=== PATIENT | female | born 1985 | race Caucasian/White ===

== ENCOUNTER 2021-07-26 05:34 | Inpatient (IN) | payer OTHER ==
[2021-07-26] VITALS (44 sets, daily range): BP systolic 90–139; BP diastolic 51–91
[~2021-07-26] VITALS: Ht 157.5 cm; Wt 73.0 kg
[2021-07-26] MEDS ORDERED: PRENTAB9 PO (06:05)
[2021-07-26] MEDS ORDERED: PRIL20TA2 PO (06:05)
[2021-07-26] MEDS ORDERED: HOME MED LIST COMPLETE! XX SCH (06:10)
[2021-07-26] MEDS ORDERED: LR 1,000 ML IV SCH (08:15)
[2021-07-26] MEDS ORDERED: METHYLERGONOVINE MALEATE 0.2 MG/ML VIAL (J2210) IM PRN (08:15)
[2021-07-26] MEDS ORDERED: OXYTOCIN INJ 10 UNITS/ML VIAL (J2590) IV PRN (08:15)
[2021-07-26] MEDS ORDERED: OXYTOCIN DRIP 30 UNITS in IV 1 EA IV PRN (08:15)
[2021-07-26] MEDS ORDERED: LACTATED RINGER'S 1000 ML IV ONE (08:15)
--- NOTE | 2021-07-26 08:49 | HPEPDOC ---
Obstetrical History & Physical General Date of Admission Jul 26, 2021 at 08:12 Primary Care Physician: Richi Linn MD History of Present Illness Vital Signs Label Value Date Time Patient Temperature 97.9 degrees F 07/26/21 0714 Temperature Source Temporal 07/26/21 0714 Pulse 82 07/26/21 0714 Respiratory Rate 20 bpm 07/26/21 0714 Blood Pressure Assessment 127/79 (95) 07/26/21 0714 Source Automatic Cuff (NIBP) Bedside Pulse Oximetry 100 % 07/26/2114 Blood Pressure Assessment 127/82 (97) 07/26/21 0555 Source Automatic Cuff (NIBP) Respiratory Rate 18 bpm 07/26/21 0555 Pulse 67 07/26/21 0555 Patient Temperature 97.4 degrees F 07/26/21 0555 Temperature Source Temporal 07/26/21 0555 35 YO LMP 10/22/2020 EDC BY EARLY US 9.1 WEEKS IS 07/29/21 AT 39.2 WEEKS WITH VOMITING Chief Complaint: Contractions, term Information Provided By: Patient Age: 35 : 1 Term: 0 Pre-term: 0 Abortions: 0 Livin Care Care: Good Care Number of Visits: 9 Dating Final EDC: Jul 29, 2021 Final EDC for Daily Update: Jul 29, 2021 Final EDC by: LMP LMP: Oct 12, 2020 1st Trimester Date: Dec 25, 2020 Weeks + Days: 9.1 Estimated Date of Confinement: Jul 29, 2021 EGA at Admission: 39.2 Antepartum Course Diagnos(e)s ACTIVE LABOR AT TERM Height (inches): 63 Pre- weight (lbs.): 133 Admission Weight (lbs.): 161 Change in Weight (lbs.): 28 Past Medical History Past Obstetrical History : Past Obstetrical History: Primgravida Past Medical History Surgical History: Hernia repair (HPV POSITIVE) Family History Significant Family History: Other (STROKE GRAND MERE ) Social History Social history NON SMOKER NO ETOH NO VAPING NO RECREATIONAL DRUGS Marital Status: Family situation: Spouse/partner home Psychosocial History: No pertinent psych hx * Smoker: non-smoker Alcohol: Denies Drugs: denies Abuse Violence Screening Have you been hit/kicked/slapp: No Have you been sexually assault: No Imunizations Tdap status: current Influenza Status: current Allergies Coded Allergies: No Known Allergies (Unverified , 07/26/21) Medications Scheduled Omeprazole Magnesium (Prilosec Otc) 20 Mg Tablet.dr, 20 MG PO DAILY No.137/Iron/Folic Acd ( Vitamin Tablet) 1 Each Tablet, 1 TAB PO DAILY Physical Examination Physical Examination GENERAL: Alert and oriented times three. BREAST: . ABDOMEN: Gravid and non-tender to touch. FETUS: Is vertex (VTX) by sterile vaginal examination (SVE), fetus is vertex (VTX) by Neil. HEART RATE: Regular rate and rhythm. LUNGS: Clear to auscultation (CTA). EXTREMITIES: No edema. No clonus. Deep tendon reflexes (DTRs) + . PELVIC EXAMINATION SOFT ANTERIOR 3 CM BULGING MEMBRANES -3 STATION POP Other physical findings NO RASHES LESIONS PURITIS CHEST CLEAR TO BASRES NO WHEEZES NO RONCHI ABDOMEN SOFT 4 QUADRANT BOWEL SOUNDS NO N/V/D/C/F/ Vital Signs/I&O Vital Signs Date Time Temp Pulse Resp B/P (MAP) Pulse Ox O2 Delivery O2 Flow Rate FiO2 07/26/21 07:14 97.9 82 20 127/79 (95) 100 Room Air Pertinent Laboratoy Data Blood Type: O+ RBC Antibody Screen: Negative HIV: Negative Hepatitis B: Negative Rapid Plasma Reagin: Immune Rubella: Nonreactive Varicella: Nonreactive Chlamydia/Gonorrhea: Negative Group B Streptococcus: Negative Cystic Fibrosis: Negative Anatomy Ultrasound Ultrasound Date: Mar 12, 2021 Placenta Location: Anterior Normal Anatomy: Yes Placenta Previa: No Estimated Weight (grams): 376 Steroid Therapy Steroid Therapy: No Vaginal Examination Dilation: 3 cm Effacement: 60% Station: -3 Cervical Position: Middle Presentation: Cephalic presentation Assessment Heart Rate (FHR): 144 Variability: Moderate Accelerations: Present Decelerations: None Tocometer Contractions: Yes Frequency: every 1-3 min. Duration: less than 60 seconds Strength: palpated as moderate Assessment/Plan Assessment 35 -year-old (G)1 para (P)0 at 39.2 weeks by 9.1-week ultrasound. Presents to Labor and Delivery (L&D) .ACTIVE LABOR TERM Plan Admit and orient. 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 Diet: NPO Group B Streptococcus (GBS) [negative]. Labs and intravenous (IV) per unit protocol. Counseled on Pitocin and induction of labor (IOL). Lactated Ringers (LR): Bolus mL, then at mL/hr. Anticipate [normal spontaneous delivery ()]. C-S as appropriate. Labor and Delivery Counseling DISCUSSED VAGINAL DELIVERY WITH POSSIBLE ASSISTANCE FORCEPS OR VACUUM FOR OR MATERNAL INDICATIONS. POSSIBLE EMERGENCY CS FOR OR MATERNAL INDICATIONS RISKS INCLUDE HEMORRHAGE INFECTION PERFORATION REOPERATION REMOTE BLOOD TRANSFUSION REMOTE HYSTERECTOMY FOR LIFE THREATENING BLEEDING ADMISSION TO NICU POSSIBLE HEMATOMA SUBDURAL OR LACERATIONS EXPRESSED UNDERSTANDING USE OF PITOCIN MAY INCREASE RISK OF NRFHT OR LEAD TO CS. 20 MINUTE DISCUSSION Richi Linn MD Jul 26, 2021 08:38
[2021-07-26 08:53] LABS: HEMATOCRIT 37.7 % (36.0-47.0); HEMOGLOBIN 12.5 g/dl (12.0-15.5); MEAN CORPUSCULAR HGB CONC 33.2 g/dl (32.0-36.5); MEAN CORPUSCULAR VOLUME 93.5 fl (80.0-96.0); PLATELET COUNT, AUTOMATED 152 10^3/uL (150-450); RED BLOOD COUNT 4.03 10^6/uL (4.00-5.40); WHITE BLOOD COUNT 15.8 10^3/uL (4.0-10.0)
[2021-07-26] MEDS ORDERED: ONDANSETRON 4MG/2ML VIAL IV PRN ×2 (09:05→10:40)
[2021-07-26] MEDS ORDERED: FENTANYL 2MCG/ML ROPIVACAINE 0.2% IN 0.9% NACL 100ML IVBAG As Ordered ONE (09:17)
[2021-07-26] MEDS ORDERED: diphenhydrAMINE 50MG/ML VIAL (J1200) IV PRN (10:40)
[2021-07-26] MEDS ORDERED: FENTANYL/ROPIVACAINE/NACL BAG 100 ML EPIDURAL SCH (10:40)
[2021-07-26] MEDS ORDERED: EPIDURAL COMMENT XX SCH (10:40)
[2021-07-26] MEDS ORDERED: EPIDURAL/PCA KEYS XX PRN (10:40)
[2021-07-26] MEDS ORDERED: REFRIGERATOR IV KEYS XX PRN (10:40)
[2021-07-26] MEDS ORDERED: NALOXONE INJ 0.4MG/1ML VIAL (J2310 PER 1MG) IV PRN (10:40)
[2021-07-26] MEDS ORDERED: OXYTOCIN DRIP 30 UNITS in IV 1 EA IV SCH ×2 (11:20→19:20)
[2021-07-26] MEDS ORDERED: ePHEDrine INJ 50 MG/ML VIAL IV STA (12:02)
[2021-07-26] MEDS ORDERED: ePHEDrine SULFATE 25 MG/5 ML(5MG/ML) SYRINGE As Ordered ONE (12:03)
[2021-07-26] MEDS ORDERED: LR 500 ML IV ONE (12:10)
[2021-07-26] MEDS ORDERED: ePHEDrine SULFATE 25 MG/5 ML(5MG/ML) SYRINGE IV STA (12:12)
[2021-07-26] MEDS: LR 1,000 ML IV SCH ×2 (13:52→17:55)
[2021-07-26] MEDS ORDERED: CALCIUM CARBONATE 500 MG CHEW U/D PO PRN (16:35)
[2021-07-26 19:12] LABS: CORD GAS ABE A -14.9; CORD GAS HCO3 A 17.7 MEQ/L; CORD GAS O2 SAT A 56.3 %; CORD GAS PCO2 A 71.6 mmHg; CORD GAS PH A 7.012 UNITS; CORD GAS PO2 A 35.2 mmHg; CORD GAS SBC A 12.7 MEQ/L; CORD GAS TCO2 A 19.9 MEQ/L
[2021-07-26 19:15] LABS: CORD GAS ABE V -13.8; CORD GAS HCO3 V 16.4 MEQ/L; CORD GAS O2 SAT V 57.4 %; CORD GAS PCO2 V 53.9 mmHg; CORD GAS PH V 7.1 UNITS; CORD GAS PO2 V 31.3 mmHg; CORD GAS SBC V 13.4 MEQ/L
[2021-07-26] MEDS ORDERED: DIBUCAINE 1% OINTMENT 30GM TOP PRN (19:20)
[2021-07-26] MEDS ORDERED: ACETAMINOPHEN 500 MG TAB PO PRN (19:20)
[2021-07-26] MEDS ORDERED: MEASLES,MUMPS,RUBELLA VACCINE INJ (MMR-II) (90707) SC SCH (19:20)
[2021-07-26] MEDS ORDERED: METHYLERGONOVINE MALEATE 0.2 MG TAB PO PRN (19:20)
[2021-07-26] MEDS ORDERED: ANUSOL HC CREAM 30GM TOP PRN (19:20)
[2021-07-26] MEDS ORDERED: MOM 30ML SUSPENSION UDC PO PRN (19:20)
--- NOTE | 2021-07-26 19:34 | DNPDOC ---
[facility] Delivery Note Delivery Note DATE OF DELIVERY: 07/26/2021 PREDELIVERY DIAGNOSIS: 39-2/7 weeks' gestation and labor. POST DELIVERY DIAGNOSIS: Delivered. PROCEDURE: Spontaneous vaginal delivery DRY BOSS: Indira Salgado MD ANESTHESIA: EPIDURAL ESTIMATED BLOOD LOSS: 150 mL. FINDINGS: 8 pound 10 ounce, 3810g male infant, Score 7/9, nuchal cord times 1. Item Value Date Time White Blood Count 15.8 10^3/uL H 07/26/21 0835 Red Blood Count 4.03 10^6/uL 07/26/21 0835 Hemoglobin 12.5 g/dl 07/26/21 0835 Hematocrit 37.7 % 07/26/21 0835 Mean Corpuscular Volume 93.5 fl 07/26/21 0835 Mean Corpuscular Hemoglobin 31.0 pg 07/26/21 0835 Mean Corpuscular Hemoglobin Concent 33.2 g/dl 07/26/21 0835 Red Cell Distribution Width 12.5 % 07/26/21 0835 Platelet Count 152 10^3/uL 07/26/21 0835 Nucleated Red Blood Cells % (auto) 0.0 % 07/26/21 0835 Oxygen Delivery Method Room Air 07/26/21 0714 Cord Arterial Blood pH 7.012 UNITS 07/26/211854 Cord Arterial Blood PCO2 71.6 mmHg 07/26/211854 Cord Arterial Blood PO2 35.2 mmHg 07/26/211854 Cord Arterial Blood HCO3 17.7 MEQ/L 07/26/211854 Cord Arterial Blood Total CO2 19.9 MEQ/L 07/26/211854 Cord Arterial Blood Base Excess -14.9 07/26/211854 Cord Arterial Base Excess (Standard 12.7 MEQ/L 07/26/211854 Cord Arterial Bld Oxygen Saturation 56.3 % 07/26/211854 Cord Venous Blood pH 7.100 UNITS 07/26/211854 Cord Venous Blood PCO2 53.9 mmHg 07/26/211854 Cord Venous Blood PO2 31.3 mmHg 07/26/211854 Cord Venous Blood HCO3 16.4 MEQ/L 07/26/211854 Cord Venous Blood Total CO2 18.0 MEQ/L 07/26/211854 Cord Venous Base Excess (Actual) -13.8 07/26/211854 Cord Venous Base Excess (Standard) 13.4 MEQ/L 07/26/211854 Cord Venous Blood Oxygen Saturation 57.4 % 07/26/211854 Vital Signs Label Value Date Time Patient Temperature 97.9 degrees F 07/26/21713 Temperature Source Temporal 07/26/21713 Pulse 82 07/26/21713 Blood Pressure Assessment 127/79 (95) 07/26/21713 Source Automatic Cuff (NIBP) Respiratory Rate 20 bpm 07/26/21713 Bedside Pulse Oximetry 100 % 07/26/21713 Patient Temperature 97.4 degrees F 07/26/21554 Temperature Source Temporal 07/26/21554 Pulse 67 07/26/21554 Respiratory Rate 18 bpm 07/26/21554 Blood Pressure Assessment 127/82 (97) 07/26/21554 Source Automatic Cuff (NIBP) DELIVERY SUMMARY: Patient is a 35 year-old 1 now para 1001 who was admitted to labor and delivery for augmentation. She progressed to C/C/+2 and with good maternal effort delivered a viable . The infants head delivered OA and the head was allowed to spontaneously restitute WARNER. loose nuchal cord noted and delivered through. anterior shoulders delivered with gentle downward traction followed by posterior shoulder and corpus without difficulty. Normal 3-vessel cord clamped x 2 and cut after 1 minute of delayed cord clamping. Spontaneous cry noted. placed on maternal abdomen for [id number] Cord blood obtained. Placenta delivered spontaneously and inspection of the placenta demonstrated that it was intact. The cord insertion appeared normal. The uterus was cleared of all clots and debris. Fundal massage until firm. 30 units of Pitocin administered per protocol and the patient required no additional uterotonics. Inspection of cervix, perineum, and vaginal wall revealed 2nd degree laceration that was repaired with a 2-0 vicryl in the usual fashion. a uretral laceration was also noted and repaired with 2 interupted stiches with 3-0 vicryl. sandoval cathater was placed to stay in overnight for expeced edema that will insure . Repeat uterine examination noted uterine tone to be adequate and firm. Mom and infant stayed in L&D in hemodynamic stable condition upon my departure. Sponge, lap and needle count correct x 2. ROSEMARIE LOPEZ MD Jul 26, 2021 19:34
[2021-07-26] MEDS: DOCUSATE SODIUM 100MG CAPSULE PO SCH (21:00)
[2021-07-27 06:00] VITALS: BP 116/62
[2021-07-27] MEDS: IBUPROFEN 800 MG TAB PO PRN ×2 (06:38→14:54)
--- NOTE | 2021-07-27 08:22 | IPNPDOC ---
Progress Note Date of Service: Jul 27, 2021 Day#: 1 Progress Note SUBJECT: Jannet is a 35-year-old [id number] PPD0 S/P complicated by uretral laceration requiring postparum sandoval overnight. she delivered an 8 pound 10 ounce, 3810g male , Score 7/9, nuchal cord times 1. She has been ambulating, and tolerating regular diet. Breast feeding without issue. Reports lochia is minimal. sandoval was removed at 7 am with due to void is 6hrs. she had good UOP overnight. OBJECTIVE: VITAL SIGNS: Within normal limits, afebrile. Alert and oriented times three. normal work of breathing Heart rate: Regular rate and rhythm, Abdomen: Fundus firm at U-2. Soft, NTTP. ASSESSMENT: Jannet is a 35-year-old [id number] PPD0 S/P complicated by uretral laceration requiring postparum sandoval overnight. she delivered an 8 pound 10 ounce, 3810g male , Score 7/9, nuchal cord times 1. Vitals within normal limits, afebrile, hemodynamically stable with no evidence of infection. PLAN: 1. Discharge to home tomorrow. 2. Tylenol and Motrin for pain. 3. Encourage breast feeding and ambulation. 4. OCP for contraception- Advised to start after 4 weeks pp 5. Routine PP visit in 6 weeks in clinic. 6. Discussed return precautions at length. VS, I&O, 24H, Fishbone Vital Signs/I&O Vital Signs Date Time Temp Pulse Resp B/P (MAP) Pulse Ox O2 Delivery O2 Flow Rate FiO2 07/27/21 06:00 98.5 83 16 116/62 (80) 98 Room Air I&O- Last 24 Hours up to 6 AM 07/27/21 06:00 Intake Total 4120 ml Output Total 6075 ml Balance -1955 ml Laboratory Data 24H LABS Laboratory Tests 2 07/26/21 08:35: Nucleated Red Blood Cells % (auto) 0.0 07/26/21 08:42: Serology Scanned Report Hepatitis B Testing 07/26/21 08:59: Coronavirus (COVID-19)(PCR) NEGATIVE 07/26/21 18:55: Cord Arterial Blood pH 7.012, Cord Arterial Blood PCO2 71.6, Cord Arterial Blood PO2 35.2, Cord Arterial Blood HCO3 17.7, Cord Arterial Blood Total CO2 19.9, Cord Arterial Blood Base Excess -14.9, Cord Arterial Base Excess (Standard 12.7, Cord Arterial Bld Oxygen Saturation 56.3, Cord Venous Blood pH 7.100, Cord Venous Blood PCO2 53.9, Cord Venous Blood PO2 31.3, Cord Venous Blood HCO3 16.4, Cord Venous Blood Total CO2 18.0, Cord Venous Base Excess (Actual) -13.8, Cord Venous Base Excess (Standard) 13.4, Cord Venous Blood Oxygen Saturation 57.4 CBC/BMP Laboratory Tests 07/26/21 08:35 ROSEMARIE LOPEZ MD Jul 27, 2021 08:22
[2021-07-27] MEDS ORDERED: PRENATAL VITAMINS CHEWABLE TABLET PO SCH (09:00)
[2021-07-27] MEDS: DOCUSATE SODIUM 100MG CAPSULE PO SCH ×2 (09:06→21:00)
[2021-07-27] MEDS: PRENATAL VITAMINS CHEWABLE TABLET PO SCH (09:06)
[2021-07-27] MEDS: OMEPRAZOLE 20 MG CAP PO SCH (09:06)
[2021-07-27 18:00] VITALS: BP 116/66
[2021-07-28] MEDS: IBUPROFEN 800 MG TAB PO PRN (05:17)
[2021-07-28] MEDS ORDERED: COLA100C5 PO (05:30)
[2021-07-28] MEDS ORDERED: ACET-683 PO (05:30)
[2021-07-28] MEDS ORDERED: IBUP80TA PO (05:30)
--- NOTE | 2021-07-28 05:35 | OBDS ---
[facility] Obstetrical Discharge Sum. Obstetrical Discharge Summary Ribbon Cutter/Provider: AMBER OWEN DO Date: Jul 28, 2021 : 1 Term: 1 Pre-term: 0 Abortions: 0 Livin VDRL: Non-Reactive Rh: Positive Rubella: Immune Labor Uncomplicated Delivery Normal spontaneous vaginal delivery Sex: Male Infant Weight: pounds (8), ounces (6), grams (3810) Anesthesia: Regional Anesthesia Episiotomy none A/P, Post Course List any complications Admission diagnosis: labor at term Discharge diagnosis: status post normal spontaneous vaginal delivery Condition at Discharge: good Discharge Instructions: home Activity: as tolerated Diet: regular Medications: picked up at [place] Follow-up: 6 weeks at [place]-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
[2021-07-28 06:00] VITALS: BP 112/73
[2021-07-28] MEDS: PRENATAL VITAMINS CHEWABLE TABLET PO SCH (09:00)
[2021-07-28] MEDS: OMEPRAZOLE 20 MG CAP PO SCH (09:00)
[2021-07-28] MEDS: DOCUSATE SODIUM 100MG CAPSULE PO SCH (09:00)
--- NOTE | 2021-07-28 12:48 | IPN ---
PROGRESS NOTE DATE: 07/28/2021 SUBJECTIVE: This patient requested circumcision of her male infant. After discussing risks and benefits of circumcision, the medical and non-medical indications, penile block and aftercare, expressed an understanding of penile block, aftercare and bleeding, signed the consent form, all questions were answered, a 20 minute discussion. cc: Haile CARDONA
== END 2021-07-28 12:35 | disposition home or self-care (01) | DRG 807 ==
LOC: M LDO 05:34 → M LDI 08:12 → M OBS 20:40
PROVIDERS: ADMIT Obstetrics & Gynecology; ATTEND Obstetrics & Gynecology
PROC: 10E0XZZ Delivery of Products of Conception, External Approach (ICD-10-PCS; principal; 2021-07-26)
PROC: 0KQM0ZZ Repair Perineum Muscle, Open Approach (ICD-10-PCS; 2021-07-26)
DX: O69.81X0 Labor and delivery complicated by cord around neck, without compression, not applicable or unspecified (principal); Z37.0 Single live birth; Z3A.39 39 weeks gestation of pregnancy; O70.1 Second degree perineal laceration during delivery